=== PATIENT | male | born 1955 ===

== ENCOUNTER 2019-03-25 12:00 | Inpatient (IN) ==
[~2019-03-25 12:00] MED LIST: HEPARIN 5,000 UNIT/1 ML VIAL ONE; HEPARIN/NACL 0.9% 2 UNITS/ML 1,000 ML IV ONE; LIDOCAINE 1% 20 ML VIAL ONE; MIDAZOLAM 2 MG/2 ML VIAL ONE; NITROGLYCERIN DRIP 50 MG/250 ML BOTTLE IV ONE; VERAPAMIL 5 MG/2 ML VIAL ONE; fentaNYL 100 MCG/2 ML VIAL ONE
[2019-03-25] MEDS ORDERED: diphenhydrAMINE 50 MG/1 ML VIAL ONE (12:06)
[2019-03-25] MEDS ORDERED: MIDAZOLAM 2 MG/2 ML VIAL ONE ×2 (12:06→12:26)
[2019-03-25] MEDS ORDERED: HYDROmorphone 2 MG/1 ML VIAL ONE (12:26)
[2019-03-25] MEDS ORDERED: diphenhydrAMINE CAP 25 MG CAPSULE PO PRN (13:00)
[2019-03-25] MEDS ORDERED: BISACODYL 5 MG TABLET PO PRN (13:00)
[2019-03-25] MEDS ORDERED: guaiFENesin/DM ER 600-30 MG TABLET PO PRN (13:00)
[2019-03-25] MEDS ORDERED: ACETAMINOPHEN 325 MG TABLET PO PRN (13:00)
[2019-03-25] MEDS ORDERED: ZALEPLON 5 MG CAPSULE PO PRN (13:00)
[2019-03-25] MEDS ORDERED: ONDANSETRON 4 MG/2 ML VIAL IV PRN (13:00)
[2019-03-25] MEDS ORDERED: MAGNESIUM SULF RIDER 2 GM in PREMIX 1 EACH IV PRN (13:00)
[2019-03-25] MEDS ORDERED: LACTULOSE 20 GM/30 ML UDCUP PO PRN (13:00)
[2019-03-25] MEDS ORDERED: MORPHINE 4 MG/1 ML VIAL IV PRN (13:00)
[2019-03-25] MEDS ORDERED: SODIUM CHLORIDE 0.9% 1,000 ML IV SCH (13:00)
[2019-03-25] MEDS ORDERED: MAGNESIUM SULF RIDER 4 GM in PREMIX 1 EACH IV PRN (13:00)
[2019-03-25] MEDS ORDERED: POTASSIUM CHLORIDE 20 MEQ TABLET PO PRN (13:06)
[2019-03-25] MEDS ORDERED: HEPARIN/NACL 0.9% 2 UNITS/ML 500 ML IV ONE (13:07)
[2019-03-25] MEDS ORDERED: TICAGRELOR 90 MG TABLET ONE (13:23)
[2019-03-25] MEDS ORDERED: DEXTROSE 10% 25 GM/250 ML BAG IV PRN (13:24)
[2019-03-25] MEDS ORDERED: GLUCAGON 1 MG VIAL IM PRN (13:24)
[2019-03-25 13:44] LABS: Basophils % 0.2 % (0.0-0.8); Eosinophils % 0.5 % (0.00-10.9); Hematocrit 34.1 VOL% (42.0-52.0); Hemoglobin 11.6 GM/DL (14.0-18.0); Immature Granulocytes % 0.4 %; Immature Granulocytes Absolute 0.03 #; Lymphocytes # 1.1 10*3/uL (1.4-4.0); Lymphocytes % 12.9 % (21.2-54.2); Mean Corpuscular Volume 87.9 FL (87-102); Mean Platelet Volume 10.4 FL (9.6-12.0); Monocytes % 3.7 % (1.7-12.7); Neutrophils % 82.3 % (38.7-73.9); Platelet Count 183 T/CUMM (130-400); Red Blood Count 3.88 MC/CUMM (3.8-5.5); Red Cell Distribution Width 13.2 % (9.3-17.3); White Blood Count 8.2 T/CUMM (4-12)
[2019-03-25 14:05] LABS: CKMB % 10.3 %
[2019-03-25 14:07] LABS: Albumin 3.3 G/DL (3.4-5.0); Bilirubin,Total 0.4 MG/DL (0.2-1.0); Calcium 7.6 MG/DL (8.5-10.1); Osmolality,Calculated 281.4 MOS/KG (273-304); Total Protein 5.8 G/DL (6.4-8.3)
[2019-03-25 14:09] LABS: Troponin I 7.79 NG/ML (0.00-0.045)
[2019-03-25 14:27] LABS: INR 1.3; PT Patient Result 14.1 SECS (9.6-12.2)
[2019-03-25] MEDS: INSULIN LISPRO 100 UNIT/ML SUBCUT SCH ×2 (16:27→21:20)
[2019-03-25 17:37] LABS: CKMB % 10.4 %
[2019-03-25 17:40] LABS: Troponin I 18.9 NG/ML (0.00-0.045)
[2019-03-25 20:05] LABS: CKMB % 9.4 %
[2019-03-25 20:07] LABS: Troponin I 23.3 NG/ML (0.00-0.045)
[2019-03-25] MEDS: TICAGRELOR 90 MG TABLET PO SCH (21:19)
[2019-03-25] MEDS: ROSUVASTATIN 20 MG TABLET PO SCH (21:19)
[2019-03-26 06:41] LABS: Basophils % 0.3 % (0.0-0.8); Eosinophils # 0.2 10*3/uL (0.0-0.87); Eosinophils % 1.5 % (0.00-10.9); Hemoglobin 12.8 GM/DL (14.0-18.0); Immature Granulocytes % 0.4 %; Immature Granulocytes Absolute 0.04 #; Lymphocytes # 1.9 10*3/uL (1.4-4.0); Lymphocytes % 18.4 % (21.2-54.2); Mean Corpuscular HGB Conc 32.8 GM/DL (32-36); Mean Corpuscular Volume 89.9 FL (87-102); Monocytes % 7.4 % (1.7-12.7); Platelet Count 195 T/CUMM (130-400); Red Blood Count 4.34 MC/CUMM (3.8-5.5); Red Cell Distribution Width 13.6 % (9.3-17.3); White Blood Count 10.1 T/CUMM (4-12)
[2019-03-26 07:01] LABS: Calcium 8.3 MG/DL (8.5-10.1); Osmolality,Calculated 281.3 MOS/KG (273-304); Risk Ratio 4.15; VLDL CHOLESTEROL 32.6 MG/DL
[2019-03-26] MEDS: INSULIN LISPRO 100 UNIT/ML SUBCUT SCH ×4 (07:14→21:00)
[2019-03-26] MEDS: carvediloL 3.125 MG TABLET PO SCH ×2 (08:47→17:17)
[2019-03-26] MEDS: ASPIRIN EC 81 MG TABLET PO SCH (08:47)
[2019-03-26] MEDS: LOSARTAN 25 MG TABLET PO SCH (08:47)
[2019-03-26] MEDS: TICAGRELOR 90 MG TABLET PO SCH ×2 (08:47→21:00)
[2019-03-26] MEDS: PANTOPRAZOLE 40 MG TABLET PO SCH (08:47)
[2019-03-26] MEDS ORDERED: PNEUMOCOCCAL VACCINE (13 VALENT) 0.5 ML SYRINGE IM ONE (09:00)
[2019-03-26 17:00] LABS: Apearance,Urine CLEAR (Clear); Bilirubin,Urine Negative (Negative); Blood, Urine Negative (Negative); Glucose,Urine (UA) Negative (Negative); Ketones,Urine Negative (Negative); Mucus,Urine Occasional /LPF (Occasional); Nitrite,Urine Negative (Negative); Protein,Urine Negative; RBC,Urine 1 /HPF (0-4); Urine Color Straw (Yellow); Urine Specific Gravity 1.009 (1.001-1.035); Urine Urobilinogen < 2.0 EU/DL (0.2-1.0); WBC,Urine <1 /HPF (0-6)
[2019-03-26] MEDS: ROSUVASTATIN 20 MG TABLET PO SCH (21:00)
[2019-03-27 06:52] LABS: Basophils % 0.3 % (0.0-0.8); Eosinophils # 0.2 10*3/uL (0.0-0.87); Eosinophils % 2.3 % (0.00-10.9); Hematocrit 39.1 VOL% (42.0-52.0); Hemoglobin 13.1 GM/DL (14.0-18.0); Immature Granulocytes % 0.3 %; Immature Granulocytes Absolute 0.02 #; Lymphocytes # 1.4 10*3/uL (1.4-4.0); Lymphocytes % 19.8 % (21.2-54.2); Mean Corpuscular HGB Conc 33.5 GM/DL (32-36); Mean Corpuscular Volume 88.1 FL (87-102); Mean Platelet Volume 10.7 FL (9.6-12.0); Monocytes % 7.2 % (1.7-12.7); Neutrophils % 70.1 % (38.7-73.9); Platelet Count 202 T/CUMM (130-400); Red Blood Count 4.44 MC/CUMM (3.8-5.5); Red Cell Distribution Width 13.4 % (9.3-17.3); White Blood Count 6.8 T/CUMM (4-12)
[2019-03-27 07:09] LABS: Calcium 8.5 MG/DL (8.5-10.1); Osmolality,Calculated 277.5 MOS/KG (273-304)
[2019-03-27 08:55] VITALS: BP 118/75
[2019-03-27] MEDS: carvediloL 3.125 MG TABLET PO SCH (08:57)
[2019-03-27] MEDS: ASPIRIN EC 81 MG TABLET PO SCH (08:57)
[2019-03-27] MEDS: TICAGRELOR 90 MG TABLET PO SCH (08:57)
[2019-03-27] MEDS: LOSARTAN 25 MG TABLET PO SCH (08:57)
[2019-03-27] MEDS: PANTOPRAZOLE 40 MG TABLET PO SCH (08:57)
[2019-03-27] MEDS: INSULIN LISPRO 100 UNIT/ML SUBCUT SCH (08:58)
== END 2019-03-27 10:00 | disposition home or self-care (01) | DRG 247 ==
LOC: EDSTATUS 12:00 → N.SDSINP 12:27 → N.ICU 12:27 → N.CL 12:27 → N.ICU 13:59 → N.TELES 03-26 10:05 → N.SDSINP 03-26 10:05 → EDSDCBED 03-26 10:05 → N.CL 03-27 10:00 → UNDODEPSDC 03-28 11:13
PROVIDERS: ADMIT Internal Medicine Cardiovascular Disease; ATTEND Internal Medicine Cardiovascular Disease
PROC: CLCCHCL (ICD-10-PCS; 2019-03-25 12:15)

== ENCOUNTER 2021-11-22 11:04 | Inpatient (IN) ==
[2021-11-22] MEDS ORDERED: SODIUM CHLORIDE 0.9% 1,000 ML IV STA (11:31)
[2021-11-22] MEDS ORDERED: PIPERACILLIN/TAZOBACTAM 3,375 MG in SODIUM CHLORIDE 0.9% 100 ML IV STA (11:31)
[2021-11-22 11:57] LABS: Basophils % 0.4 % (0.0-0.8); Eosinophils % 0.3 % (0.00-10.9); Hematocrit 38.3 VOL% (42.0-52.0); Hemoglobin 12.2 GM/DL (14.0-18.0); Immature Granulocytes % 0.5 %; Immature Granulocytes Absolute 0.06 #; Lymphocytes # 1.2 10*3/uL (1.4-4.0); Lymphocytes % 10.9 % (21.2-54.2); Mean Corpuscular HGB Conc 31.9 GM/DL (32-36); Mean Corpuscular Volume 84.4 FL (87-102); Mean Platelet Volume 10.6 FL (9.6-12.0); Monocytes # 0.8 10*3/uL (0.11-0.8); Monocytes % 6.9 % (1.7-12.7); Platelet Count 199 T/CUMM (130-400); Red Blood Count 4.54 MC/CUMM (3.8-5.5); Red Cell Distribution Width 14.8 % (9.3-17.3); White Blood Count 11.2 T/CUMM (4-12)
[2021-11-22 12:20] LABS: Albumin 3.4 G/DL (3.4-5.0); Bilirubin,Total 0.7 MG/DL (0.20-1.00); Calcium 8.5 MG/DL (8.5-10.1); Osmolality,Calculated 281.4 MOS/KG (273-304); Potassium 4.6 MMOL/L (3.5-5.1); Total Protein 6.4 G/DL (6.4-8.2)
[2021-11-22] MEDS ORDERED: propofoL 200 MG/20 ML VIAL IV ONE (13:02)
[2021-11-22] MEDS ORDERED: SEVOFLURANE 1 UNIT/15 MINUTE INH ONE (13:02)
[2021-11-22] MEDS ORDERED: KETOROLAC 30 MG/1 ML VIAL ONE (13:02)
[2021-11-22] MEDS ORDERED: ROCURONIUM 50 MG/5 ML VIAL IV ONE (13:02)
[2021-11-22] MEDS ORDERED: LIDOCAINE 2% 5 ML VIAL ONE (13:02)
[2021-11-22] MEDS ORDERED: ONDANSETRON 4 MG/2 ML VIAL ONE (13:02)
[2021-11-22] MEDS ORDERED: MIDAZOLAM 2 MG/2 ML VIAL ONE (13:03)
[2021-11-22] MEDS ORDERED: fentaNYL 100 MCG/2 ML VIAL ONE (13:03)
[2021-11-22] MEDS ORDERED: LIDOCAINE 2%/EPI 20 ML VIAL ONE (13:22)
[2021-11-22] MEDS ORDERED: BUPIVACAINE MPF 0.25% 10 ML VIAL ONE (13:23)
[2021-11-22] MEDS ORDERED: LACTATED RINGERS 1,000 ML IV SCH (13:30)
[2021-11-22] MEDS ORDERED: GLYCOPYRROLATE 0.4 MG/2 ML VIAL ONE (14:47)
[2021-11-22] MEDS ORDERED: NEOSTIGMINE 10 MG/10 ML VIAL ONE (14:47)
[2021-11-22] MEDS ORDERED: TISSUE ADHESIVE 1 EACH APPLICATOR TOP ONE (14:57)
[2021-11-22] MEDS ORDERED: ONDANSETRON 4 MG/2 ML VIAL IV PRN (15:06)
[2021-11-22] MEDS ORDERED: MORPHINE 2 MG/1 ML SYRINGE IV PRN (15:06)
[2021-11-22] MEDS ORDERED: GLUCAGON 1 MG VIAL IM PRN (15:06)
[2021-11-22] MEDS ORDERED: NITROGLYCERIN SL 0.4 MG TABLET SL PRN (15:08)
[2021-11-22] MEDS ORDERED: DEXTROSE 10% 250 ML BAG IV PRN (15:21)
[2021-11-22] MEDS ORDERED: INFLUENZA VIRUS VACCINE 0.5 ML SYRINGE IM ONE (16:43)
[2021-11-22] MEDS: carvediloL 3.125 MG TABLET PO SCH (17:11)
[2021-11-22] MEDS: PIPERACILLIN/TAZOBACTAM 3,375 MG in SODIUM CHLORIDE 0.9% 100 ML IV SCH (21:40)
[2021-11-23] MEDS ORDERED: ACETAMINOPHEN 325 MG TABLET PO PRN (00:27)
[2021-11-23] MEDS: PIPERACILLIN/TAZOBACTAM 3,375 MG in SODIUM CHLORIDE 0.9% 100 ML IV SCH (03:43)
[2021-11-23] MEDS ORDERED: GLIMEPIRIDE 2 MG TABLET PO SCH (08:00)
[2021-11-23 08:04] VITALS: BP 118/51
[2021-11-23 08:20] LABS: Basophils % 0.1 % (0.0-0.8); Eosinophils % 0.2 % (0.00-10.9); Hematocrit 32.2 VOL% (42.0-52.0); Hemoglobin 10.5 GM/DL (14.0-18.0); Lymphocytes # 0.8 10*3/uL (1.4-4.0); Lymphocytes % 7.8 % (21.2-54.2); Mean Corpuscular HGB Conc 32.6 GM/DL (32-36); Mean Corpuscular Volume 82.8 FL (87-102); Mean Platelet Volume 10.7 FL (9.6-12.0); Monocytes # 0.5 10*3/uL (0.11-0.8); Monocytes % 5.5 % (1.7-12.7); Neutrophils % 85.9 % (38.7-73.9); Platelet Count 163 T/CUMM (130-400); Red Blood Count 3.89 MC/CUMM (3.8-5.5); Red Cell Distribution Width 15.2 % (9.3-17.3); White Blood Count 9.8 T/CUMM (4-12)
[2021-11-23] MEDS: carvediloL 3.125 MG TABLET PO SCH (08:34)
[2021-11-23 08:42] LABS: Albumin 2.7 G/DL (3.4-5.0); Calcium 8.3 MG/DL (8.5-10.1); Osmolality,Calculated 276.8 MOS/KG (273-304); Potassium 4.1 MMOL/L (3.5-5.1); Total Protein 5.6 G/DL (6.4-8.2)
[2021-11-23] MEDS ORDERED: LOSARTAN 50 MG TABLET PO SCH (09:00)
[2021-11-23] MEDS ORDERED: ASPIRIN EC 81 MG TABLET PO SCH (09:00)
[2021-11-23] MEDS ORDERED: PANTOPRAZOLE 40 MG TABLET PO SCH (09:00)
[2021-11-23] MEDS ORDERED: ROSUVASTATIN 20 MG TABLET PO SCH (09:00)
== END 2021-11-23 10:25 | disposition home or self-care (01) | DRG 418 ==
LOC: N.ED 11:04 → N.EDINP 14:15 → N.3E 16:28
PROVIDERS: ADMIT Surgery; ATTEND Surgery
PROC: LAPCHOL (2021-11-22 13:45)